=== PATIENT | female | born 1990 | race Caucasian/White ===

== ENCOUNTER 2020-09-24 06:30 | Inpatient (IN) ==
[2020-09-24] MEDS ORDERED: Naloxone 0.4 MG/ML INJ IVP PRN (06:32)
[2020-09-24] MEDS ORDERED: *HR* FentaNYL (PF) 100 MCG/2 ML VIAL IVP PRN (06:32)
[2020-09-24] MEDS ORDERED: Famotidine 20 MG/2 ML VIAL IVP PRN (06:32)
[2020-09-24] MEDS ORDERED: Metoclopramide 10 MG/2 ML VIAL IVP PRN (06:32)
[2020-09-24] MEDS ORDERED: Ondansetron 4 MG/2 ML VIAL IVP PRN (06:32)
[2020-09-24] MEDS ORDERED: Ringers Solution, Lactated 1,000 ML IVC SCH (06:45)
[2020-09-24 07:27] LABS: Basophils % 0.2 %; Eosinophils # 0.1 K/mcL (0.0-0.6); Eosinophils % 0.4 %; Hematocrit 36.3 % (35.3-44.9); Hemoglobin 11.9 g/dL (11.5-15.4); Immature Granulocytes % 0.5 % (0-4); Lymphocytes # 3.1 K/mcL (0.6-4.6); Lymphocytes % 18.1 %; Mean Corpuscular HGB Conc 32.8 g/dL (31.6-35.5); Mean Corpuscular Hemoglobin 30.1 pg (28.0-33.3); Mean Corpuscular Volume 91.9 fL (83.0-100.0); Mean Platelet Volume 9.7 fL (9.4-12.4); Monocytes # 1.1 K/mcL (0.0-1.3); Monocytes % 6.3 %; Neutrophils # 12.7 K/mcL (1.6-8.9); Platelet Count 531 K/mcL (140-400); Red Blood Count 3.95 M/mcL (3.82-4.97); Red Cell Distribution Width 12.6 % (11.5-14.5); Segmented Neutrophils % 74.5 %
[2020-09-24 08:58] LABS: Amphetamine Screen,Urine Negative ng/mL (Cutoff=1000); Barbiturate Screen,Urine Negative ng/mL (Cutoff=200); Benzodiazepines Screen,Urine Negative ng/mL (Cutoff=200); Cannabinoid Screen,Urine Negative ng/mL (Cutoff = 50); Cocaine Screen,Urine Negative ng/mL (Cutoff= 300); Opiate Screen,Urine Negative ng/mL (Cutoff=300); Phencyclidine Screen,Urine Negative ng/mL (Cutoff=25)
[2020-09-24] MEDS ORDERED: miSOPROStoL 25 MCG TABLET PO STA (09:03)
[2020-09-24] MEDS: miSOPROStoL 25 MCG TABLET PO PRN ×2 (10:33→16:09)
[2020-09-24] MEDS ORDERED: Acetaminophen 325 MG TABLET PO PRN (17:43)
[2020-09-24] MEDS ORDERED: Acetaminophen 325 MG TABLET PO ONE (17:46)
[2020-09-24] MEDS ORDERED: *HR* FentaNYL (PF) 100 MCG/2 ML VIAL EP ONE (18:22)
[2020-09-24] MEDS ORDERED: Ropivacaine/PF 0.2% 20 ML VIAL EP ONE (18:22)
[2020-09-24] MEDS ORDERED: EPHEDrine 50 MG/ML VIAL IVP PRN (18:22)
[2020-09-24] MEDS ORDERED: Epidural Premix (fent/bupiv) 110 ML EP SCH (18:30)
[2020-09-24] MEDS ORDERED: *HR* FentaNYL (PF) 100 MCG/2 ML VIAL ONE (19:24)
[2020-09-24] MEDS ORDERED: Ropivacaine/PF 0.2% 20 ML VIAL ONE (19:25)
[2020-09-25] MEDS ORDERED: Oxytocin 20 units/ LR 1000 mL 20 UNIT/1,000 ML BAG IVC ONE ×2 (00:14→04:43)
[2020-09-25] MEDS ORDERED: Measles/Mumps/Rubella Vacc 0.5 ML VIAL SQ PRN (04:43)
[2020-09-25] MEDS ORDERED: Benzocaine/Menthol 56 GM AEROSOL SPRAY TP PRN (04:43)
[2020-09-25] MEDS ORDERED: Rho Immune Globulin 1,500 UNIT SYRINGE IM PRN (04:43)
[2020-09-25] MEDS ORDERED: Oxytocin 20 units/ LR 1000 mL 20 UNIT/1,000 ML BAG IVC SCH (04:43)
[2020-09-25] MEDS: Aspirin Enteric Coated 81 MG Tablet PO SCH (07:45)
[2020-09-25] MEDS: Ibuprofen 600 MG TABLET PO PRN ×2 (07:45→17:06)
[2020-09-25] MEDS: Prenatal Vit/FA 1 EACH TABLET PO SCH (07:45)
[2020-09-25] MEDS: Acetaminophen 325 MG TABLET PO PRN ×2 (13:37→21:47)
[2020-09-26] MEDS: Ibuprofen 600 MG TABLET PO PRN (06:38)
[2020-09-26 08:13] VITALS: BP 114/75
[2020-09-26 08:15] LABS: Basophils # 0.1 K/mcL (0.0-0.2); Basophils % 0.3 %; Eosinophils # 0.1 K/mcL (0.0-0.6); Eosinophils % 0.6 %; Hematocrit 31.9 % (35.3-44.9); Immature Granulocytes % 0.5 % (0-4); Lymphocytes # 3.2 K/mcL (0.6-4.6); Lymphocytes % 18.7 %; Mean Corpuscular HGB Conc 31.3 g/dL (31.6-35.5); Mean Corpuscular Hemoglobin 28.8 pg (28.0-33.3); Mean Corpuscular Volume 91.9 fL (83.0-100.0); Mean Platelet Volume 9.8 fL (9.4-12.4); Monocytes # 1.7 K/mcL (0.0-1.3); Monocytes % 10.1 %; Neutrophils # 11.9 K/mcL (1.6-8.9); Platelet Count 470 K/mcL (140-400); Red Blood Count 3.47 M/mcL (3.82-4.97); Red Cell Distribution Width 13.2 % (11.5-14.5); Segmented Neutrophils % 69.8 %
[2020-09-26] MEDS: Acetaminophen 325 MG TABLET PO PRN (10:03)
[2020-09-26] MEDS: Prenatal Vit/FA 1 EACH TABLET PO SCH (10:03)
[2020-09-26] MEDS: Aspirin Enteric Coated 81 MG Tablet PO SCH (10:03)
== END 2020-09-26 11:58 | disposition home or self-care (01) | DRG 560 ==
LOC: 1NENULAB 06:30 → 1NENUOBS 09-25 04:42
PROVIDERS: ADMIT Obstetrics & Gynecology; ATTEND Obstetrics & Gynecology

== ENCOUNTER 2021-10-22 08:51 | Inpatient (IN) ==
[2021-10-22] MEDS ORDERED: Metoclopramide 10 MG/2 ML VIAL IVP PRN (09:03)
[2021-10-22] MEDS ORDERED: Naloxone 0.4 MG/ML INJ IVP PRN (09:03)
[2021-10-22] MEDS ORDERED: Famotidine 20 MG/2 ML VIAL IVP PRN (09:03)
[2021-10-22] MEDS ORDERED: *HR* Nalbuphine 10 MG/ML AMPUL IV PRN (09:03)
[2021-10-22] MEDS ORDERED: Ondansetron 4 MG/2 ML VIAL IVP PRN (09:04)
[2021-10-22] MEDS ORDERED: Ringers Solution, Lactated 1,000 ML IVC SCH (09:15)
[2021-10-22] MEDS ORDERED: miSOPROStoL 25 MCG TABLET PO STA (09:59)
[2021-10-22 10:01] LABS: Basophils % 0.3 %; Eosinophils # 0.1 K/mcL (0.0-0.6); Eosinophils % 1.1 %; Hematocrit 34.8 % (35.3-44.9); Hemoglobin 11.1 g/dL (11.5-15.4); Immature Granulocytes % 0.6 % (0-4); Lymphocytes # 2.4 K/mcL (0.6-4.6); Lymphocytes % 23.7 %; Mean Corpuscular HGB Conc 31.9 g/dL (31.6-35.5); Mean Corpuscular Hemoglobin 29.4 pg (28.0-33.3); Mean Corpuscular Volume 92.3 fL (83.0-100.0); Mean Platelet Volume 10.8 fL (9.4-12.4); Monocytes # 0.8 K/mcL (0.0-1.3); Monocytes % 7.5 %; Neutrophils # 6.7 K/mcL (1.6-8.9); Platelet Count 465 K/mcL (140-400); Red Blood Count 3.77 M/mcL (3.82-4.97); Red Cell Distribution Width 15.1 % (11.5-14.5); Segmented Neutrophils % 66.8 %
[2021-10-22 10:32] LABS: Influenza A PCR Negative (Negative); Influenza B PCR Negative (Negative); Resp. Syncytial Virus PCR Negative (Negative)
[2021-10-22 10:33] LABS: SARS-CoV-2 by PCR (In House) Negative (Negative)
[2021-10-22 12:59] LABS: Amphetamine Screen,Urine Negative ng/mL (Cutoff=1000); Barbiturate Screen,Urine Negative ng/mL (Cutoff=200); Benzodiazepines Screen,Urine Positive ng/mL (Cutoff=200); Cannabinoid Screen,Urine Positive ng/mL (Cutoff = 50); Cocaine Screen,Urine Negative ng/mL (Cutoff= 300); Opiate Screen,Urine Positive ng/mL (Cutoff=300); Phencyclidine Screen,Urine Negative ng/mL (Cutoff=25)
[2021-10-22] MEDS ORDERED: Ropivacaine/PF 0.2% 20 ML VIAL EP ONE (13:10)
[2021-10-22] MEDS ORDERED: EPHEDrine 50 MG/ML VIAL IVP PRN (13:10)
[2021-10-22] MEDS ORDERED: *HR* FentaNYL (PF) 100 MCG/2 ML VIAL EP ONE (13:10)
[2021-10-22] MEDS ORDERED: Epidural Premix (fent/bupiv) 110 ML EP SCH (13:15)
[2021-10-22] MEDS ORDERED: Ropivacaine/PF 0.2% 20 ML VIAL ONE (15:49)
[2021-10-22] MEDS ORDERED: *HR* FentaNYL (PF) 100 MCG/2 ML VIAL ONE (15:49)
[2021-10-22] MEDS ORDERED: Oxytocin 20 units/ LR 1000 mL 20 UNIT/1,000 ML BAG IVC SCH ×2 (17:15→23:37)
[2021-10-22] MEDS ORDERED: Benzocaine/Menthol 56 GM AEROSOL SPRAY TP PRN (23:37)
[2021-10-22] MEDS ORDERED: Rho Immune Globulin 1,500 UNIT SYRINGE IM PRN (23:37)
[2021-10-22] MEDS ORDERED: Oxytocin 20 units/ LR 1000 mL 20 UNIT/1,000 ML BAG IVC ONE (23:37)
[2021-10-22] MEDS ORDERED: Ondansetron ODT 4 MG TAB.RAPDIS SL PRN (23:37)
[2021-10-22] MEDS ORDERED: Acetaminophen 325 MG TABLET PO PRN (23:37)
[2021-10-22] MEDS ORDERED: Measles/Mumps/Rubella Vacc 0.5 ML VIAL SQ PRN (23:37)
[2021-10-22] MEDS ORDERED: Lanolin 7 G OINT...G. TP PRN (23:37)
[2021-10-23] MEDS: Ibuprofen 600 MG TABLET PO SCH ×3 (01:09→15:01)
[2021-10-23] MEDS: Acetaminophen 325 MG TABLET PO SCH ×2 (03:38→19:56)
[2021-10-23 04:19] LABS: Basophils # 0.1 K/mcL (0.0-0.2); Basophils % 0.4 %; Eosinophils # 0.1 K/mcL (0.0-0.6); Eosinophils % 0.7 %; Hematocrit 33.5 % (35.3-44.9); Hemoglobin 10.8 g/dL (11.5-15.4); Immature Granulocytes % 0.5 % (0-4); Lymphocytes # 2.8 K/mcL (0.6-4.6); Lymphocytes % 18.9 %; Mean Corpuscular HGB Conc 32.2 g/dL (31.6-35.5); Mean Corpuscular Hemoglobin 29.8 pg (28.0-33.3); Mean Corpuscular Volume 92.5 fL (83.0-100.0); Mean Platelet Volume 10.5 fL (9.4-12.4); Monocytes # 1.2 K/mcL (0.0-1.3); Monocytes % 7.8 %; Neutrophils # 10.7 K/mcL (1.6-8.9); Platelet Count 450 K/mcL (140-400); Red Blood Count 3.62 M/mcL (3.82-4.97); Red Cell Distribution Width 14.9 % (11.5-14.5); Segmented Neutrophils % 71.7 %; White Blood Count 14.9 K/mcL (4.3-11.1)
[2021-10-23] MEDS: Prenatal Vit/FA 1 EACH TABLET PO SCH (08:20)
[2021-10-23] MEDS: valACYclovir 500 MG TABLET PO SCH (08:21)
[2021-10-23] MEDS ORDERED: Furosemide 40 MG/4 ML VIAL IVP ONE ×2 (08:38→18:00)
[2021-10-24] MEDS: Ibuprofen 600 MG TABLET PO SCH ×2 (03:33→09:26)
[2021-10-24] MEDS: Acetaminophen 325 MG TABLET PO SCH ×2 (03:34→09:26)
[2021-10-24 03:53] VITALS: O2SAT 98
[2021-10-24 04:47] LABS: Basophils # 0.1 K/mcL (0.0-0.2); Basophils % 0.6 %; Eosinophils # 0.3 K/mcL (0.0-0.6); Eosinophils % 2.2 %; Hematocrit 34.8 % (35.3-44.9); Hemoglobin 10.7 g/dL (11.5-15.4); Immature Granulocytes % 0.4 % (0-4); Lymphocytes # 3.6 K/mcL (0.6-4.6); Lymphocytes % 30.9 %; Mean Corpuscular HGB Conc 30.7 g/dL (31.6-35.5); Mean Corpuscular Hemoglobin 29.2 pg (28.0-33.3); Mean Corpuscular Volume 94.8 fL (83.0-100.0); Mean Platelet Volume 10.6 fL (9.4-12.4); Monocytes # 0.9 K/mcL (0.0-1.3); Monocytes % 8.1 %; Neutrophils # 6.7 K/mcL (1.6-8.9); Platelet Count 477 K/mcL (140-400); Red Blood Count 3.67 M/mcL (3.82-4.97); Red Cell Distribution Width 15.4 % (11.5-14.5); Segmented Neutrophils % 57.8 %; White Blood Count 11.6 K/mcL (4.3-11.1)
[2021-10-24 05:05] LABS: Alanine Aminotransferase 12 Units/L (7-52); Aspartate Amino Transferase 14 Units/L (13-39); BUN/Creatinine Ratio 15 (6-26); Blood Urea Nitrogen 14 mg/dL (6-20); Carbon Dioxide 29 mEq/L (23-29); Chloride 105 mEq/L (98-107); Lactate Dehydrogenase 202 Units/L (140-271); Potassium 3.9 mEq/L (3.5-5.1); Sodium 140 mEq/L (136-145); Uric Acid 7.6 mg/dL (2.3-7.6); eGFR For African Americans > 60 (> 60); eGFR For Non-African Americans > 60 (> 60)
[2021-10-24 07:48] VITALS: BP 136/88; PULSE 75; TEMP 97.7
[2021-10-24] MEDS: Prenatal Vit/FA 1 EACH TABLET PO SCH (09:26)
[2021-10-24] MEDS: valACYclovir 500 MG TABLET PO SCH (09:26)
== END 2021-10-24 11:19 | disposition home or self-care (01) | DRG 560 ==
LOC: 1NENULAB 08:51 → 1NENUOBS 23:20
PROVIDERS: ADMIT Obstetrics & Gynecology; ATTEND Obstetrics & Gynecology